=== PATIENT | male | born 1985 | race Hispanic/Latino ===

== ENCOUNTER 2022-08-10 12:54 | Emergency (ER) | payer OTHER ==
[~2022-08-10] VITALS: Ht 182.9 cm; Wt 106.6 kg
[2022-08-10] MEDS ORDERED: TYLENOL325 MG PO (13:12)
[2022-08-10] MEDS ORDERED: IBUPROFEN200 MG PO (13:12)
[2022-08-10] MEDS ORDERED: ZANAFLEX4 MG PO (13:12)
== END 2022-08-10 13:33 | disposition home or self-care (01) ==
LOC: FSED 13:23
DX: M43.6 Torticollis (principal)
CPT/HCPCS: 99282